=== PATIENT | female | born 1930 | race Caucasian/White ===

== ENCOUNTER 2018-04-24 14:36 | Inpatient (IN) | payer MEDICARE, OTHER ==
[~2018-04-24] VITALS: Ht 162.6 cm; Wt 63.0 kg
--- NOTE | ~2018-04-24 | OP ---
PATIENT NAME: GLADIS DIEGO MEDICAL RECORD: [id number] :34 LOCATION:[id number] ADMISSION DATE:04/24/18 SURGEON: CHANTALE DOWD MD DATE OF OPERATION: 04/26/2018 PREOPERATIVE DIAGNOSIS: Acute cholecystitis. POSTOPERATIVE DIAGNOSES: 1. Chronic cholecystitis. 2. Extensive intraabdominal adhesions. 3. Left lower quadrant parastomal hernia. 4. Hepatomegaly, likely due to fatty liver disease. 5. Dilated common bile duct. 6. Nonobstructing common bile duct stone. 7. Adhesions to the gallbladder. SURGEON: Chantale Dowd MD DIGITAL DATA ANALYST: None. BLOOD LOSS: Less than 25 mL. ANESTHESIA: General. DRAINS: x1 (10-Iranian round Live drain). The risks, possible complications, and alternatives to procedure were explained to the patient. She elects to proceed. The discussion specifically included, but was not limited to, bleeding requiring emergency reoperation, infection, bile duct injury. OPERATIVE COURSE: The patient was conveyed to the operating room electively on 04/26/2018. General anesthesia was induced by the anesthesia staff. The abdomen was sterilely prepped and draped. This was after a 4 x 4's and a Tegaderm was placed over the left lower quadrant colostomy. A small skin ruy was accomplished in the left upper quadrant. A Veress needle was inserted through the skin ruy into the peritoneal cavity. CO2 insufflation was begun. Once a sufficient pneumoperitoneum had been achieved, a 5-mm trocar was inserted through an incision in the right upper quadrant. Under direct internal vision, utilizing television camera, another 5-mm trocar was inserted through an incision in the right upper quadrant. I had to create a space in order to work in and there were extensive intraabdominal adhesions. I started taking some of these adhesions down with the laparoscopic scissors. I was able to create enough space to place another 5-mm trocar in the left upper quadrant. I then placed a second 5-mm trocar in the left upper quadrant. The falciform ligament and the anterior portion of the triangular ligament had already been taken down and there were some filmy adhesions here, which were lysed. I continued my laparoscopic dissection. At no time was there any apparent bowel injury. I placed a 12-mm trocar in the left periumbilical area. I continued my adhesiolysis and I took down some adhesions to the gallbladder. I advanced an 14-gauge core needle liver biopsy device. Cores were obtained over the convexity of the liver. The biopsy sites were made hemostatic with electrocautery. I then advanced a cholangiogram trocar. I punctured the fundus of the gallbladder. I aspirated bile. I then injected dye. Real time OPERATIVE REPORT [id number] ABNER DIEGOY cholangiographic images were obtained. Dr. Costa called in the room and told me of the cholangiographic results. I contacted Dr. Hartmann and Dr. Siddiqui by phone. The gallbladder was grasped and retracted cephalad. The infundibulum was grasped and retracted laterally. Blunt dissection was begun in the triangle of Calot. One cystic artery and one cystic duct were identified. These were clipped multiply and divided between clips. The gallbladder was then excised from its bed in the liver. It was placed within a bag retrieval device and was withdrawn through the 12-mm trocar site. I then replaced the 12-mm trocar. I irrigated and aspirated the right upper quadrant. There was no bleeding even at low pressure of 8. Chika was added to the gallbladder fossa for additional hemostasis. I advanced a 10-Iranian fully fluted drain through the lateral most trocar site. This was placed under the acute margin of the liver. The 12-mm trocar was removed. The fascia at this site was closed with Jonas-Jackson suture closure device and 0 Vicryl suture. All trocars removed and the abdomen desufflated. The drain was sutured to skin with 2-0 nylon. Skin incisions were closed with interrupted intracuticular 3-0 Vicryls. Dermabond was then applied. The patient was then extubated and conveyed to post-anesthesia care unit where she was in stable condition. We will plan to keep her in the hospital and obtain an ERCP through Dr. Hartmann sometime next week. TRANSINT:[id number] Voice Confirmation ID: [id number] DOCUMENT ID: [id number] 04/26/[address] Wellington Murray and Dr. Nadia Beck in the ER at [facility]. CHANTALE DOWD MD at [id number] CC: GRICELDA SIDDIQUI MD and HUGH HARTMANN DO [id number] DICTATION DATE: 04/26/18 0939 OPHTHALMIC ASSISTANT: 04/26/18 1028 ADM IN [facility] [address] [place] [address]
[2018-04-24 18:01] LABS: BASOPHILS 0.6 % (0-2); EOSINOPHILS 1.7 % (0-7); HEMATOCRIT 37.1 % (36.0-48.0); HEMOGLOBIN 12.1 g/dL (12-16); IMMATURE GRANULOCYTES 0.8 % (0-5); MCHC 32.6 g/dL (31.0-37.0); MCV 79.8 fL (80.0-100.0); MEAN PLATELET VOLUME 9.9 fL (7.4-10.4); MONOCYTES 11.1 % (2-11); NEUTROPHILS 64.8 % (40-80); PLATELET COUNT 224 10x3/uL (130-400); RBC 4.65 10x6/uL (4.00-5.40); RDW 19.6 % (11.5-14.5); WBC 6.5 10x3/uL (4.8-10.8)
[2018-04-24 20:00] VITALS: BP 146/75
[2018-04-24 20:00] LABS: ALBUMIN 2.4 g/dL (3.4-5.0); ANION GAP 12.1 mmol/L (8-16); BILIRUBIN - TOTAL 0.63 mg/dL (0.2-1.3); CALCIUM 9.4 mg/dL (8.5-10.1); CARBON DIOXIDE 29.1 mmol/L (21.0-32.0); CREATININE - SERUM 0.9 mg/dL (0.6-1.3); POTASSIUM - SERUM 4.2 mmol/L (3.5-5.1); PROTEIN - SERUM 5.6 g/dL (6.4-8.2)
[2018-04-24 20:24] LABS: % SATURATION 15 % (15-55); IRON 42 ug/dl (35-150); TOTAL IRON BIND CAPACITY 263 ug/dl (260-445); UNSAT IRON BIND CAPACITY 221 ug/dl (150-375)
[2018-04-24 20:30] LABS: FERRITIN 64 ng/mL (3-244); LDH 176 U/L (81-234)
[2018-04-25] VITALS (7 sets, daily range): BP systolic 98–174; BP diastolic 55–68; Ht 162.6 cm; Wt 63.0 kg
[2018-04-25 06:47] LABS: BASOPHILS 0.4 % (0-2); EOSINOPHILS 1.4 % (0-7); HEMATOCRIT 35.2 % (36.0-48.0); HEMOGLOBIN 11.3 g/dL (12-16); IMMATURE GRANULOCYTES 0.5 % (0-5); LYMPHOCYTES 18.1 % (15-50); MCH 25.6 pg (26.0-34.0); MCHC 32.1 g/dL (31.0-37.0); MCV 79.6 fL (80.0-100.0); MEAN PLATELET VOLUME 9.6 fL (7.4-10.4); MONOCYTES 10.3 % (2-11); NEUTROPHILS 69.3 % (40-80); PLATELET COUNT 254 10x3/uL (130-400); RBC 4.42 10x6/uL (4.00-5.40); RDW 19.7 % (11.5-14.5)
[2018-04-25 06:58] LABS: WBC 8.3 10x3/uL (4.8-10.8)
[2018-04-25 07:17] LABS: ALBUMIN 2.3 g/dL (3.4-5.0); BILIRUBIN - TOTAL 0.62 mg/dL (0.2-1.3); CARBON DIOXIDE 29.8 mmol/L (21.0-32.0); CREATININE - SERUM 0.9 mg/dL (0.6-1.3); POTASSIUM - SERUM 3.8 mmol/L (3.5-5.1); PROTEIN - SERUM 5.8 g/dL (6.4-8.2)
[2018-04-25 17:00] LABS: APPEARANCE CLEAR (CLEAR); BILIRUBIN NEGATIVE (NEGATIVE); COLOR YELLOW (YELLOW); GLUCOSE NEGATIVE (NEGATIVE); KETONE NEGATIVE (NEGATIVE); NITRITE NEGATIVE (NEGATIVE); PROTEIN NEGATIVE (NEGATIVE); UROBILINOGEN NORMAL (NORMAL)
[2018-04-26] VITALS: BP 147/87
[2018-04-26 04:00] VITALS: BP 136/80
[2018-04-26 06:30] LABS: BASOPHILS 0.5 % (0-2); EOSINOPHILS 2.5 % (0-7); HEMATOCRIT 31.5 % (36.0-48.0); HEMOGLOBIN 9.9 g/dL (12-16); IMMATURE GRANULOCYTES 0.5 % (0-5); LYMPHOCYTES 22.3 % (15-50); MCH 25.1 pg (26.0-34.0); MCHC 31.4 g/dL (31.0-37.0); MCV 79.7 fL (80.0-100.0); MEAN PLATELET VOLUME 9.3 fL (7.4-10.4); MONOCYTES 11.5 % (2-11); NEUTROPHILS 62.7 % (40-80); PLATELET COUNT 249 10x3/uL (130-400); RBC 3.95 10x6/uL (4.00-5.40); RDW 19.7 % (11.5-14.5)
[2018-04-26 06:46] LABS: WBC 5.6 10x3/uL (4.8-10.8)
[2018-04-26 06:59] LABS: ALBUMIN 2.2 g/dL (3.4-5.0); ANION GAP 10.7 mmol/L (8-16); BILIRUBIN - TOTAL 0.49 mg/dL (0.2-1.3); CALCIUM 8.4 mg/dL (8.5-10.1); CARBON DIOXIDE 28.7 mmol/L (21.0-32.0); POTASSIUM - SERUM 3.4 mmol/L (3.5-5.1); PROTEIN - SERUM 5.7 g/dL (6.4-8.2)
[2018-04-26 16:06] VITALS: BP 155/69
[2018-04-26 20:00] VITALS: BP 170/64
[2018-04-26] MEDS ORDERED: LEVOTHYROXINE100 MCG PO (21:51)
[2018-04-26] MEDS ORDERED: ZANTAC150 MG (21:58)
[2018-04-26] MEDS ORDERED: ZOCOR10 MG PO (21:59)
[2018-04-26] MEDS ORDERED: ZYRTEC10 MG PO (21:59)
[2018-04-26] MEDS ORDERED: NEURONTIN 300300 MG PO (22:00)
[2018-04-26] MEDS ORDERED: ZOLOFT50 MG PO (22:01)
[2018-04-26] MEDS ORDERED: DIOVAN160 MG PO (22:01)
[2018-04-26] MEDS ORDERED: COREG25 MG PO (22:01)
[2018-04-26] MEDS ORDERED: METOPROLOL TART50 MG PO (22:02)
[2018-04-26] MEDS ORDERED: DEMADEX10 MG PO (22:02)
[2018-04-27] VITALS: BP 186/77
[2018-04-27 04:00] VITALS: BP 210/90
[2018-04-27 04:59] LABS: BASOPHILS 0.4 % (0-2); EOSINOPHILS 0.9 % (0-7); HEMATOCRIT 32.3 % (36.0-48.0); HEMOGLOBIN 10.4 g/dL (12-16); IMMATURE GRANULOCYTES 0.4 % (0-5); LYMPHOCYTES 23.8 % (15-50); MCH 25.7 pg (26.0-34.0); MCHC 32.2 g/dL (31.0-37.0); MCV 79.8 fL (80.0-100.0); MEAN PLATELET VOLUME 9.2 fL (7.4-10.4); MONOCYTES 10.8 % (2-11); NEUTROPHILS 63.7 % (40-80); PLATELET COUNT 292 10x3/uL (130-400); RBC 4.05 10x6/uL (4.00-5.40); WBC 5.6 10x3/uL (4.8-10.8)
[2018-04-27 05:14] LABS: ALBUMIN 2.4 g/dL (3.4-5.0); ANION GAP 9.7 mmol/L (8-16); BILIRUBIN - TOTAL 0.65 mg/dL (0.2-1.3); CARBON DIOXIDE 28.9 mmol/L (21.0-32.0); CREATININE - SERUM 0.9 mg/dL (0.6-1.3); MAGNESIUM - SERUM 1.9 mg/dL (1.8-2.4); PHOSPHOROUS 2.9 mg/dL (2.5-4.9); POTASSIUM - SERUM 3.6 mmol/L (3.5-5.1); PROTEIN - SERUM 6.2 g/dL (6.4-8.2)
[2018-04-27 10:22] VITALS: BP 176/95
[2018-04-27 22:54] VITALS: BP 130/46
[2018-04-28 05:00] VITALS: BP 146/66
[2018-04-28 08:32] LABS: BASOPHILS 0.2 % (0-2); EOSINOPHILS 2.6 % (0-7); HEMATOCRIT 30.4 % (36.0-48.0); HEMOGLOBIN 9.8 g/dL (12-16); IMMATURE GRANULOCYTES 0.2 % (0-5); LYMPHOCYTES 13.1 % (15-50); MCH 25.9 pg (26.0-34.0); MCHC 32.2 g/dL (31.0-37.0); MCV 80.4 fL (80.0-100.0); MEAN PLATELET VOLUME 9.2 fL (7.4-10.4); MONOCYTES 8.3 % (2-11); NEUTROPHILS 75.6 % (40-80); RBC 3.78 10x6/uL (4.00-5.40); RDW 20.3 % (11.5-14.5); WBC 5.4 10x3/uL (4.8-10.8)
[2018-04-28 08:34] LABS: PLATELET COUNT 224 10x3/uL (130-400)
[2018-04-28 08:38] VITALS: BP 132/62
[2018-04-28 08:42] LABS: INR 1.12 (0.85-1.17)
[2018-04-28 08:50] LABS: ALBUMIN 2.1 g/dL (3.4-5.0); ANION GAP 8.2 mmol/L (8-16); BILIRUBIN - TOTAL 0.62 mg/dL (0.2-1.3); CALCIUM 9.1 mg/dL (8.5-10.1); CARBON DIOXIDE 29.4 mmol/L (21.0-32.0); CREATININE - SERUM 0.9 mg/dL (0.6-1.3); POTASSIUM - SERUM 3.6 mmol/L (3.5-5.1); PROTEIN - SERUM 5.8 g/dL (6.4-8.2)
[2018-04-28 12:09] VITALS: BP 103/49
[2018-04-28 15:23] VITALS: BP 136/59
[2018-04-28 20:00] VITALS: BP 137/57
[2018-04-29] VITALS (9 sets, daily range): BP systolic 101–170; BP diastolic 52–83
[2018-04-29 06:38] LABS: BASOPHILS 0.5 % (0-2); EOSINOPHILS 3.3 % (0-7); HEMATOCRIT 30.9 % (36.0-48.0); HEMOGLOBIN 10.2 g/dL (12-16); IMMATURE GRANULOCYTES 0.4 % (0-5); LYMPHOCYTES 24.8 % (15-50); MCH 26.6 pg (26.0-34.0); MCV 80.7 fL (80.0-100.0); MEAN PLATELET VOLUME 9.2 fL (7.4-10.4); MONOCYTES 8.7 % (2-11); NEUTROPHILS 62.3 % (40-80); PLATELET COUNT 255 10x3/uL (130-400); RBC 3.83 10x6/uL (4.00-5.40); RDW 20.5 % (11.5-14.5); WBC 5.5 10x3/uL (4.8-10.8)
[2018-04-29 06:59] LABS: ALBUMIN 2.2 g/dL (3.4-5.0); ANION GAP 7.5 mmol/L (8-16); BILIRUBIN - TOTAL 0.43 mg/dL (0.2-1.3); CARBON DIOXIDE 32.1 mmol/L (21.0-32.0); CREATININE - SERUM 0.8 mg/dL (0.6-1.3); POTASSIUM - SERUM 3.6 mmol/L (3.5-5.1); PROTEIN - SERUM 5.9 g/dL (6.4-8.2)
[2018-04-30 05:55] LABS: BASOPHILS 0.4 % (0-2); EOSINOPHILS 1.7 % (0-7); HEMATOCRIT 32.1 % (36.0-48.0); HEMOGLOBIN 10.3 g/dL (12-16); IMMATURE GRANULOCYTES 0.3 % (0-5); LYMPHOCYTES 16.4 % (15-50); MCH 25.8 pg (26.0-34.0); MCHC 32.1 g/dL (31.0-37.0); MCV 80.3 fL (80.0-100.0); MONOCYTES 7.5 % (2-11); NEUTROPHILS 73.7 % (40-80); PLATELET COUNT 283 10x3/uL (130-400); RDW 20.4 % (11.5-14.5)
[2018-04-30 05:59] LABS: WBC 7.5 10x3/uL (4.8-10.8)
[2018-04-30 06:11] VITALS: BP 146/57
[2018-04-30 06:25] LABS: ALKALINE PHOSPHATASE 737 U/L (46-116); ALT (SGPT) 31 U/L (10-68); BILIRUBIN - TOTAL 0.46 mg/dL (0.2-1.3); CALC OSMOLALITY 269 mosm/kg (275-300); CALCIUM 8.7 mg/dL (8.5-10.1); CARBON DIOXIDE 28.4 mmol/L (21.0-32.0); CHLORIDE - SERUM 101 mmol/L (98-107); CREATININE - SERUM 0.7 mg/dL (0.6-1.3); GLUCOSE 88 mg/dL (74-106); POTASSIUM - SERUM 3.6 mmol/L (3.5-5.1); PROTEIN - SERUM 5.5 g/dL (6.4-8.2); SODIUM 136 mmol/L (136-145); UREA NITROGEN 11 mg/dL (7-18); eGFR NON AFRICAN AMERICAN 84 mL/min (90-120)
[2018-04-30 08:05] VITALS: BP 156/70
[2018-04-30 11:41] VITALS: BP 98/53
[2018-04-30 12:00] VITALS: BP 123/60
[2018-04-30 15:48] VITALS: BP 119/50
[2018-05-01 04:02] VITALS: BP 180/79
[2018-05-01 05:26] LABS: BASOPHILS 0.5 % (0-2); EOSINOPHILS 2.5 % (0-7); HEMOGLOBIN 10.1 g/dL (12-16); IMMATURE GRANULOCYTES 0.3 % (0-5); LYMPHOCYTES 21.1 % (15-50); MCH 25.6 pg (26.0-34.0); MCHC 31.6 g/dL (31.0-37.0); MCV 81.2 fL (80.0-100.0); MONOCYTES 10.1 % (2-11); NEUTROPHILS 65.5 % (40-80); PLATELET COUNT 278 10x3/uL (130-400); RBC 3.94 10x6/uL (4.00-5.40); RDW 20.5 % (11.5-14.5)
[2018-05-01 05:39] LABS: ALBUMIN 1.9 g/dL (3.4-5.0); ALKALINE PHOSPHATASE 591 U/L (46-116); ALT (SGPT) 27 U/L (10-68); BILIRUBIN - TOTAL 0.38 mg/dL (0.2-1.3); CALC OSMOLALITY 267 mosm/kg (275-300); CALCIUM 8.5 mg/dL (8.5-10.1); CARBON DIOXIDE 28.8 mmol/L (21.0-32.0); CHLORIDE - SERUM 103 mmol/L (98-107); CREATININE - SERUM 0.7 mg/dL (0.6-1.3); GLUCOSE 77 mg/dL (74-106); POTASSIUM - SERUM 3.6 mmol/L (3.5-5.1); PROTEIN - SERUM 5.6 g/dL (6.4-8.2); SODIUM 135 mmol/L (136-145); UREA NITROGEN 10 mg/dL (7-18); eGFR NON AFRICAN AMERICAN 84 mL/min (90-120)
[2018-05-01 08:28] VITALS: BP 160/77
[2018-05-01 12:08] VITALS: BP 158/78
== END 2018-05-01 13:30 | DRG 417 ==
LOC: D.MS 14:36 → D.SDCHOLD 04-25 16:03 → D.MS 05-01 13:30
PROVIDERS: Family Medicine; Internal Medicine Gastroenterology; Internal Medicine Nephrology; Surgery
PROC: 0DNW4ZZ Release Peritoneum, Percutaneous Endoscopic Approach (ICD-10-PCS; 2018-04-26)
PROC: 0FB03ZX Excision of Liver, Percutaneous Approach, Diagnostic (ICD-10-PCS; 2018-04-26)
PROC: BF131ZZ Fluoroscopy of Gallbladder and Bile Ducts using Low Osmolar Contrast (ICD-10-PCS; 2018-04-26)
PROC: 0FT44ZZ Resection of Gallbladder, Percutaneous Endoscopic Approach (ICD-10-PCS; principal; 2018-04-26 14:00)
PROC: 0FC98ZZ Extirpation of Matter from Common Bile Duct, Via Natural or Artificial Opening Endoscopic (ICD-10-PCS; 2018-04-29)
DX: K80.44 Calculus of bile duct with chronic cholecystitis without obstruction (principal); G93.41 Metabolic encephalopathy; N39.0 Urinary tract infection, site not specified; I25.10 Atherosclerotic heart disease of native coronary artery without angina pectoris; Z95.1 Presence of aortocoronary bypass graft; I10 Essential (primary) hypertension; D50.9 Iron deficiency anemia, unspecified; K66.0 Peritoneal adhesions (postprocedural) (postinfection); K43.5 Parastomal hernia without obstruction or gangrene; K82.8 Other specified diseases of gallbladder; R16.0 Hepatomegaly, not elsewhere classified; Z95.0 Presence of cardiac pacemaker; Z85.038 Personal history of other malignant neoplasm of large intestine; Z87.891 Personal history of nicotine dependence